=== PATIENT | female | born 1935 | race Two or more races ===

== ENCOUNTER 2019-03-31 23:49 | Inpatient (IN) | payer MEDICAID ==
[~2019-03-31] VITALS: Ht 165.1 cm; Wt 59.9 kg
--- NOTE | 2019-04-01 00:10 | NUR ---
BIBFAMILY C/O SOB X2 DAYS. -CP, +COUGH, PT HAD CEST XRAY DONE AT [facility] SHOWING FLUID IN THE LUNG, TO ER BED 2, VSS, IN COMFORTABLE POSITION, AWAITING MED EVAL
--- NOTE | 2019-04-01 00:31 | NUR ---
LINE STARTED, BLOOD COLECTED AND SENT TO LAB, TECH AT BEDSIDE FOR XRAY
[2019-04-01 00:37] LABS: BASOPHILS % (AUTO) 0.9 % (0.0-2.0); EOSINOPHILS % (AUTO) 6.9 % (0.0-6.0); HEMATOCRIT 32 % (33-45); HEMOGLOBIN 10.7 g/dL (11.5-14.8); LYMPHOCYTES # (AUTO) 1.6 /CMM (0.8-4.8); LYMPHOCYTES % (AUTO) 37.6 % (20.0-44.0); MEAN CORPUSCULAR HGB CONC 33 g/dl (31.0-36.0); MEAN CORPUSCULAR VOLUME 87 fL (82-100); MONOCYTES # (AUTO) 0.4 /CMM (0.1-1.30); MONOCYTES % (AUTO) 9.8 % (2.0-12.0); NEUTROPHILS # (AUTO) 1.9 /CMM (1.8-8.9); NEUTROPHILS % (AUTO) 44.8 % (43.0-81.0); PLATELET COUNT (AUTO) 227 /CMM (150-450); RED BLOOD CELL COUNT(AUTO) 3.72 MIL/uL (4.0-5.2); WHITE BLOOD COUNT (AUTO) 4.2 K/uL (4.3-11.0)
[2019-04-01 00:47] LABS: CARBON DIOXIDE 29 mmol/L (21-32); CHLORIDE 104 mmol/L (98-107); CREATININE 0.8 mg/dL (0.6-1.3); GLUCOSE 105 mg/dL (74-106); POTASSIUM 4.4 mmol/L (3.5-5.1); SODIUM SERUM 137 mmol/L (136-145); UREA NITROGEN, BLOOD 33 mg/dL (7-18)
[2019-04-01 01:00] LABS: ALANINE AMINOTRANSFERASE 17 U/L (12-78); ALBUMIN 3.6 g/dL (3.4-5.0); ALKALINE PHOSPHATASE 49 U/L (46-116); ASPARTATE AMINOTRANSFERASE 17 U/L (15-37); B-TYPE NATRIURETIC PEPTIDE 265 PG/ML (0-125); BILIRUBIN,DIRECT 0.1 mg/dL (0.0-0.2); BILIRUBIN,TOTAL 0.4 mg/dL (0.2-1.0); TOTAL PROTEIN, SERUM 7.4 g/dL (6.4-8.2)
[2019-04-01] MEDS ORDERED: FUROSEMIDE 40 MG/4 ML VIAL ONE (02:10)
[2019-04-01] MEDS ORDERED: ASPIRIN EC 325 MG TABLET.DR PO ONE ×2 (02:25→02:30)
[2019-04-01] MEDS ORDERED: FUROSEMIDE 40 MG/4 ML VIAL IV ONE (02:30)
[2019-04-01] MEDS ORDERED: IPRATROPIUM NEB FS 0.5 MG/2.5 ML AMPUL.NEB NEB ONE (02:30)
[2019-04-01] MEDS ORDERED: ALBUTEROL FS 2.5 MG/3 ML VIAL.NEB NEB ONE (02:30)
--- NOTE | 2019-04-01 02:40 | NUR ---
FLU SWAB COLLECTED AND SENT TO LAB
[2019-04-01] MEDS ORDERED: ALBUTEROL FS 2.5 MG/3 ML VIAL.NEB ONE (02:48)
[2019-04-01] MEDS ORDERED: IPRATROPIUM NEB FS 0.5 MG/2.5 ML AMPUL.NEB ONE (02:48)
--- NOTE | 2019-04-01 02:55 | NUR ---
RT AT BEDSIDE FOR BREATHING TX
[2019-04-01] MEDS ORDERED: NITROGLYCERIN 0.4 MG/TAB BOTTLE SL PRN (03:00)
[2019-04-01] MEDS ORDERED: HYDROCODONE/APAP 5/325MG 1 EACH TABLET PO PRN (03:00)
[2019-04-01] MEDS ORDERED: ACETAMINOPHEN 325 MG TABLET PO PRN (03:00)
[2019-04-01] MEDS ORDERED: MAGNESIUM HYDROXIDE 30 ML UDC PO PRN (03:00)
[2019-04-01] MEDS ORDERED: TEMAZEPAM 15 MG CAPSULE PO PRN (03:00)
[2019-04-01] MEDS ORDERED: MORPHINE SULFATE INJ 2 MG/ML DISP.SYRIN IV PRN (03:00)
[2019-04-01] MEDS ORDERED: MAG HYDROX/AL HYDROX/SIMETH 30 ML UDC PO PRN (03:00)
[2019-04-01] MEDS ORDERED: ONDANSETRON HCL/PF 4 MG/2 ML VIAL IVP PRN (03:00)
[2019-04-01] MEDS ORDERED: METF-440 PO (03:40)
[2019-04-01] MEDS ORDERED: OMEP40CA37 PO (03:40)
[2019-04-01] MEDS ORDERED: PRIM50TA27 PO (03:40)
[2019-04-01] MEDS ORDERED: GABA-532 PO (03:40)
[2019-04-01] MEDS ORDERED: PROP80CA PO (03:40)
[2019-04-01] MEDS ORDERED: ATOR40TA PO (03:40)
[2019-04-01] MEDS ORDERED: DULO30CA2 PO (03:40)
--- NOTE | 2019-04-01 03:43 | NUR ---
CALLED IN REPORT TO RAZIA PATTON
[2019-04-01 03:55] VITALS: BP 128/68
--- NOTE | 2019-04-01 04:02 | NUR ---
MOVED PT UP TO UNIT VIA ACLS PROTOCOL
--- NOTE | 2019-04-01 04:03 | NUR ---
CONTROLLED AREA CHECKERLAMP STACK DEVELOPER NOTES Received patient from ER via gurney accompanied by 2 ER staff and the daughter. A/O x4, awake, Farsi speaking, vest baster utilized. Admitted to TELE 311-2 due to Acute CHF under the service of ISHA Swift. Admission routine done, patient's belongings inventory completed by the assigned BENDING PRESS OPERATOR. On tele monitor with NSR with BBB noted. Initial skin assessment done, no skin issues identified. Per daughter, the DPOA, patient lives with her at home. Patient ambulates with walker with assistance. Admission orders noted and carried out. Patient denies any discomfort at this time. Kept patient on bed clean, dry and comfortable. Call light within easy reach. Daughter remained at bedside. Will continue to monitor accordingly.
[2019-04-01] MEDS: PANTOPRAZOLE 40 MG TABLET.DR PO SCH (06:45)
--- NOTE | 2019-04-01 06:53 | NUR ---
FOOD CHECKERS AND CASHIERS SUPERVISOR CLOSING NOTES Patient intermittently asleep, on O2 inhalation via NC @ 6LPM, no SOB/respiratory distress at rest noted. Patient able to use BSC with minimal SOB noted. Assistance provided. Daughter remain at bedside. No new unusualities noted. All nursing needs attended. Kept on bed clean, dry and comfortable. Call light within easy reach. On fall and aspiration precautions. Endorsed to the next shift.
--- NOTE | 2019-04-01 07:30 | NUR ---
BRAZING MACHINE TENDER OPENING NOTES: RECEIVED PATIENT IN BED AWAKE AND ALERT. A/O X, FARSI SPEAKING. DAUGHTER PRESENT AT BEDSIDE. ABLE TO MAKE NEEDS KNOWN. NO S/S OF SOB OR DISTRESS. NO COMPLAINS OF PAIN OR DISCOMFORT AT THIS TIME. ON TELE MONITOR FOR SR WITH BBB. PATIENT IS AMBULATORY WITH ASSISTANCE AND BRP. IV ACCESS ON LEFT FA #20G PATENT AND INTACT. NO S/S OF INFILTRATION. CALL LIGHT WITHIN REACH. SAFETY MEASURES INITIATED. BED IS IN LOW, LOCKED POSITION WITH SIDE RAILS UP X2. WILL CONTINUE TO MONITOR ACCORDINGLY.
[2019-04-01 08:00] VITALS: BP 98/56
[2019-04-01] MEDS: ASPIRIN 81 MG TAB.CHEW PO SCH (08:41)
[2019-04-01] MEDS ORDERED: FUROSEMIDE 40 MG TABLET PO SCH (09:00)
[2019-04-01] MEDS: DULOXETINE HCL 30 MG CAPSULE.DR PO SCH ×2 (14:20→17:01)
[2019-04-01] MEDS ORDERED: AZITHROMYCIN 500 MG in IV D5W 250 ML IV SCH (15:00)
[2019-04-01 16:00] VITALS: BP 100/54
[2019-04-01] MEDS: GABAPENTIN 100 MG CAPSULE PO SCH (17:01)
[2019-04-01] MEDS: METFORMIN 500 MG TABLET PO SCH (17:01)
[2019-04-01] MEDS: PRIMIDONE 50 MG TABLET PO SCH (17:02)
--- NOTE | 2019-04-01 18:56 | NUR ---
EXECUTIVE SALES ASSISTANT NOTES PATIENT IN BED RESTING WITH DAUGHTER AT BEDSIDE. PATIENT ALERT, ORIENTED X3 [place] SPEAKING. PATIENT NOTED WITH MINIMAL SOB WITH AMBULATION. ALL DUE MEDICATIONS ADMINISTERED. ALL NEEDS MET. WILL ENDORSE CARE TO PM SHIFT.
--- NOTE | 2019-04-01 19:20 | NUR ---
TELE/RN NOTES RECEIVED PT. LYING IN BED. PT. IS AWAKE, ALERT AND ORIENTED X3 PORTUGUESE SPEAKING. BREATHING EVEN AND UNLABORED ON ROOM AIR. NO SOB, RESPIRATORY DISTRESS OR COMPLAINTS OF PAIN NOTED AT THIS TIME. PT. WITH EXTERNAL STAGE TECHNICIAN PRESENT AND INTACT. CURRENT RHYTHM = SINUS RHYTHM WITH BBB HR 80. PT. WITH LEFT FOREARM 20 GAUGE IV SALINE LOCK PRESENT, PATENT AND INTACT. PT. WITH FAMILY MEMBER PRESENT AT BEDSIDE. BED LOCKED AND IN LOWEST POSITION, SIDE RAILS UP X2, CALL LIGHT WITHIN REACH, WILL CONTINUE TO MONITOR.
[2019-04-01 20:00] VITALS: BP 116/59
[2019-04-01] MEDS ORDERED: ATORVASTATIN 40 MG TABLET PO SCH (22:00)
[2019-04-02] VITALS: BP 108/55
[2019-04-02 04:00] VITALS: BP 108/65
--- NOTE | 2019-04-02 06:33 | NUR ---
TELE/RN NOTES PT. IS LYING IN BED RESTING. BREATHING EVEN AND UNLABORED ON ROOM AIR. NO SOB, RESPIRATORY DISTRESS OR COMPLAINTS OF PAIN NOTED AT THIS TIME AND THROUGHOUT SHIFT. PT. WITH EXTERNAL TIRE CLASSIFIER PRESENT AND INTACT. CURRENT RHYTHM = SINUS RHYTHM WITH BBB HR 73. PT. WITH LEFT FOREARM 20 GAUGE IV SALINE LOCK PRESENT, PATENT AND INTACT. ALL PT. NEEDS MET. PT. WITH FAMILY MEMBER PRESENT AT BEDSIDE. BED LOCKED AND IN LOWEST POSITION, SIDE RAILS UP X2, CALL LIGHT WITHIN REACH, WILL ENDORSE TO DAYSHIFT NURSE FOR CONTINUITY OF CARE.
[2019-04-02 07:00] LABS: BASOPHILS % (AUTO) 0.6 % (0.0-2.0); EOSINOPHILS % (AUTO) 6.2 % (0.0-6.0); HEMATOCRIT 33 % (33-45); HEMOGLOBIN 11.1 g/dL (11.5-14.8); LYMPHOCYTES # (AUTO) 1.3 /CMM (0.8-4.8); LYMPHOCYTES % (AUTO) 35.1 % (20.0-44.0); MEAN CORPUSCULAR HGB CONC 33 g/dl (31.0-36.0); MEAN CORPUSCULAR VOLUME 86 fL (82-100); MONOCYTES # (AUTO) 0.4 /CMM (0.1-1.30); MONOCYTES % (AUTO) 11.3 % (2.0-12.0); NEUTROPHILS # (AUTO) 1.7 /CMM (1.8-8.9); NEUTROPHILS % (AUTO) 46.8 % (43.0-81.0); PLATELET COUNT (AUTO) 249 /CMM (150-450); RED BLOOD CELL COUNT(AUTO) 3.85 MIL/uL (4.0-5.2); WHITE BLOOD COUNT (AUTO) 3.7 K/uL (4.3-11.0)
[2019-04-02 07:26] LABS: CREATININE 0.9 mg/dL (0.6-1.3); PHOSPHORUS 4.4 mg/dL (2.5-4.9); POTASSIUM 3.9 mmol/L (3.5-5.1); THYROID STIMULATING HORMONE 1.163 uIU/mL (0.358-3.74)
[2019-04-02] MEDS ORDERED: PANTOPRAZOLE 40 MG TABLET.DR PO SCH (07:30)
--- NOTE | 2019-04-02 07:43 | NUR ---
CONSUMER INSIGHT ANALYST OPENING NOTE Patient received sleeping in bed. Patient is showing no signs of acute distress. IV line is clean and patent. Family is at the bedside. Daughter stated that at 0300 patient was experiencing pain in the left lower leg. Daughter stated they did not call for assistance but she massaged patient's leg with OTC Pain relief cream 4% lidocaine. Will notify MD. Bed is in lowest position, side rails x2 in upright position. Call light is within reach and patient is aware of how to call for assistance when needed. Will continue to monitor.
--- NOTE | 2019-04-02 08:00 | NUR ---
MS/RN S/B Dr Leahy Seen by Dr Leahy - CHF mild and controlled, no edema or shortness of breath. Cleared from cardiology standpoint for discharge and follow up with primary care doctor.
[2019-04-02 08:16] VITALS: BP 92/56
[2019-04-02] MEDS: PRIMIDONE 50 MG TABLET PO SCH (08:18)
[2019-04-02] MEDS: GABAPENTIN 100 MG CAPSULE PO SCH (08:19)
[2019-04-02] MEDS: DULOXETINE HCL 30 MG CAPSULE.DR PO SCH (08:20)
[2019-04-02] MEDS: ASPIRIN 81 MG TAB.CHEW PO SCH (08:20)
[2019-04-02] MEDS: PANTOPRAZOLE 40 MG TABLET.DR PO SCH (08:20)
[2019-04-02] MEDS: METFORMIN 500 MG TABLET PO SCH (08:20)
[2019-04-02 08:23] VITALS: BP 92/56
[2019-04-02 08:34] LABS: IRON, SERUM 61 ug/dl (50-175); TOTAL IRON BINDING CAPACITY 294 ug/dl (250-450)
[2019-04-02 08:50] LABS: FERRITIN 62 ng/mL (8-388)
[2019-04-02] MEDS ORDERED: PROPRANOLOL LA 60 MG CAP.SA.24H PO SCH (09:00)
[2019-04-02] MEDS ORDERED: HYDROCHLOROTHIAZIDE 25 MG TABLET PO SCH (09:00)
--- NOTE | 2019-04-02 09:49 | NUR ---
PRODUCTION ADMINISTRATIVE ASSISTANT CALL FROM RADIOLOGY Received call from Dr. Craig stating, "there is a 4.5 cm mass in the AP Window. CT Chest with IV contrast ordered." Dr. Lucia notified at 0960. Addendum: 04/02/19 at 1109 by TOYA PAYAN Please disregarded above note, wrong patient.
[2019-04-02] MEDS ORDERED: LACTULOSE 10 G/15 ML UDC (PYXIS) PO PRN (10:00)
[2019-04-02] MEDS ORDERED: ASPI-1169 PO (10:06)
[2019-04-02] MEDS ORDERED: HYDR25TA4 PO (10:06)
[2019-04-02] MEDS ORDERED: AZIT250T13 PO (10:06)
--- NOTE | 2019-04-02 11:10 | NUR ---
MS/RN S/B Diana Franklin FURNITURE UPHOLSTERER APPRENTICE Seen by FURNITURE UPHOLSTERER APPRENTICE - patient to be discharged to home later today. Orders given for lactulose prior to discharge.
--- NOTE | 2019-04-02 12:57 | NUR ---
MS/supervisor paper testing Patient discharged to home in stable condition, accompanied by daughter. Heplock, name bands and tele monitor removed, all personal belongings returned to patient and accounted for on belongings list. Exit care signed, provided with copy and copy of chart. Prescription for antibiotic, blood pressure medication given to patient, instructed to fill at any pharmacy to day in order for patient to receive today's antibiotic. Educated patient and daughter as to what each medication was for and for possible side effects to be aware of. Educated as to the importance of following up with primary care doctor, per daughter, appointment already set for two weeks time. Instructed patient to weigh herself each day at the same time and to keep a record of this to present to PCP, also to inform them of any sudden weight gain greater than 5lb or shortness of breath. Number given to call with any questions or concerns. Time allowed for all questions and concerns to be addressed. Escorted to main lobby.
== END 2019-04-02 12:45 | disposition home or self-care (01) | DRG 194 ==
LOC: ER 23:52 → TELE 04-01 03:36 → MED 04-02 08:33
PROVIDERS: ADMIT Nurse Practitioner Acute Care; ATTEND Nurse Practitioner Acute Care
DX: I11.0 Hypertensive heart disease with heart failure (principal); J96.01 Acute respiratory failure with hypoxia; D63.8 Anemia in other chronic diseases classified elsewhere; E11.9 Type 2 diabetes mellitus without complications; I25.10 Atherosclerotic heart disease of native coronary artery without angina pectoris; I45.10 Unspecified right bundle-branch block; J06.9 Acute upper respiratory infection, unspecified; I50.33 Acute on chronic diastolic (congestive) heart failure; Z95.1 Presence of aortocoronary bypass graft; R79.89 Other specified abnormal findings of blood chemistry; Z79.84 Long term (current) use of oral hypoglycemic drugs
CPT/HCPCS: 36415; 71045-TC; 80048-TC; 80061-TC; 80076-TC; 82728-TC; 83540-TC; 83735-TC; 83880; 84100-TC; 84443-TC; 84484-TC; 85025-TC; 85730-TC; 87081-TC; 93307-TC; 97116-TC; 97530-TC; G0378; J0456; J1940; J7050; J7060